=== PATIENT | female | born 1965 | race Caucasian/White ===

== ENCOUNTER 2025-06-29 22:46 | Emergency (ER) | payer MEDICARE, MEDICAID ==
[~2025-06-29] VITALS: Ht 134.6 cm; Wt 45.5 kg
[~2025-06-29 22:46] MED LIST: ALLO100T PO; ATOR10TA69 PO; CALC667C PO; DESI10TA PO; DICL100G60 TP; ENTE0.5T12 PO; FAMO20 PO; FOLI-130 PO; LEVO25TA9 PO; METO25 PO; MIDO5TAB29 PO; OS500 PO; OXYC10TA48 PO; PATI16.8 PO; PREG25 PO; SENN-374 PO
[2025-06-29 23:29] LABS: PLATELET COUNT (AUTO) 201 K/uL (150-450); RED BLOOD CELL COUNT(AUTO) 2.17 MIL/uL (4.00-5.20); RED CELL DISTRIBUTION WIDTH 16.0 % (11.5-14.5); WHITE BLOOD COUNT (AUTO) 5.0 K/uL (4.5-11.0)
[2025-06-29 23:36] LABS: CALCIUM, TOTAL 7.8 mg/dL (8.8-10.5); CREATININE 2.21 mg/dL (0.60-1.30); GLOMERULAR FILTR. RATE CALC 23.0 mL/min (>60); GLUCOSE,RANDOM 106.0 mg/dL (70-110); SODIUM SERUM 141.0 mmol/L (136-145); UREA NITROGEN, BLOOD 20.0 mg/dL (7-18)
[2025-06-29] MEDS: OxyCODONE HCL 5 MG IR TABLET PO ONE (23:45)
[2025-06-30] VITALS (11 sets, daily range): BP systolic 169–179; BP diastolic 67–89; PULSE 70–79; RESP 17–18; TEMP 98.1–98.8; O2SAT 98
[2025-06-30] MEDS: MORPHINE SULFATE 4 MG/ML SYRINGE IVP ONE (00:33)
[2025-06-30] MEDS: OxyCODONE HCL 5 MG IR TABLET PO ONE (06:00)
== END 2025-06-30 06:53 | disposition home or self-care (01) ==
LOC: EMS 23:50
DX: D64.9 Anemia, unspecified (principal); I12.0 Hypertensive chronic kidney disease with stage 5 chronic kidney disease or end stage renal disease; N18.6 End stage renal disease; M10.9 Gout, unspecified; E87.5 Hyperkalemia; E87.6 Hypokalemia; Z79.1 Long term (current) use of non-steroidal anti-inflammatories (NSAID); Z85.51 Personal history of malignant neoplasm of bladder; Z88.8 Allergy status to other drugs, medicaments and biological substances; Z79.899 Other long term (current) drug therapy
CPT/HCPCS: 99285; 36430; 80048; 85025; 85610; 86850; 86900; 86901; 86923; 36415; 96374; P9016; J2270